=== PATIENT | female | born 1975 | race Caucasian/White ===

== ENCOUNTER 2020-07-14 17:28 | Emergency (ER) | payer SELFPAY ==
[~2020-07-14] VITALS: Ht 149.9 cm; Wt 93.0 kg
[2020-07-14 17:38] VITALS: BP 173/102
[2020-07-14] MEDS ORDERED: KETOROLAC 15 MG/ML VIAL IVP ONE (18:50)
== END 2020-07-14 19:00 | disposition left against medical advice (07) ==
LOC: MED 17:28
DX: R05 Cough (principal); Z53.21 Procedure and treatment not carried out due to patient leaving prior to being seen by health care provider